=== PATIENT | male | born 1960 | race Caucasian/White ===

== ENCOUNTER 2022-12-10 16:14 | Emergency (ER) | payer OTHER ==
[~2022-12-10] VITALS: Ht 172.7 cm; Wt 86.2 kg
--- NOTE | 2022-12-10 16:20 | NUR ---
RECEIVED PT 62 YRS MALE C[facility]ALUATION OF GENRALIZED WEAKNESS AND SWEATING awake and alert fallow command
--- NOTE | 2022-12-10 17:10 | NUR ---
Jemma markrocky in [facility] - 12/10/22 at 1827 by NANCY AT BED SIDE
--- NOTE | 2022-12-10 17:14 | NUR ---
ACCUCKECK DONE 160MG/DL NOTEFED
--- NOTE | 2022-12-10 17:21 | NUR ---
C XRAY DONE AT BED SIDE
--- NOTE | 2022-12-10 17:22 | NUR ---
BLOOD DROW BY LAB TACH
--- NOTE | 2022-12-10 17:30 | NUR ---
AT BED SIDE CONDITION UP DATE
[2022-12-10 17:32] LABS: BASOPHILS # (AUTO) 0.1 K/uL (0.0-0.2); BASOPHILS % (AUTO) 1.2 % (0.0-2.0); EOSINOPHILS % (AUTO) 6.8 % (0.0-6.0); HEMATOCRIT 38 % (39-51); HEMOGLOBIN 12.7 g/dL (13.5-17.5); LYMPHOCYTES % (AUTO) 31.8 % (20.0-44.0); MEAN CORPUSCULAR HGB CONC 33 g/dl (31.0-36.0); MEAN CORPUSCULAR VOLUME 99 fL (80-96); MONOCYTES # (AUTO) 0.5 K/uL (0.1-1.30); MONOCYTES % (AUTO) 7.3 % (2.0-12.0); NEUTROPHILS # (AUTO) 3.3 K/uL (1.8-8.9); NEUTROPHILS % (AUTO) 52.9 % (43.0-81.0); PLATELET COUNT (AUTO) 193 K/uL (150-450); RED BLOOD CELL COUNT(AUTO) 3.86 MIL/uL (4.5-6.0); WHITE BLOOD COUNT (AUTO) 6.2 K/uL (4.3-11.0)
[2022-12-10 18:13] LABS: CALCIUM, SERUM 8.1 mg/dL (8.5-10.1); CARBON DIOXIDE 26 mmol/L (21-32); CHLORIDE 107 mmol/L (98-107); CREATININE 1.1 mg/dL (0.6-1.3); GLUCOSE 156 mg/dL (74-106); POTASSIUM 3.6 mmol/L (3.5-5.1); SODIUM SERUM 141 mmol/L (136-145); UREA NITROGEN, BLOOD 19 mg/dL (7-18)
--- NOTE | 2022-12-10 18:30 | NUR ---
BLOOD DROW BY LAB TO REPEAT TROPONIN
--- NOTE | 2022-12-10 19:40 | NUR ---
Jemma wetzel in [facility] - 12/10/22 at 1942 by NANCY ERROL LIM RN
--- NOTE | 2022-12-10 19:42 | NUR ---
HAND OFF ANA HERNANDEZ
--- NOTE | 2022-12-10 20:06 | NUR ---
RECEIVED PT IN ER BED 3. PT IS RESTING IN BED W/ EYES CLOSED, RR EVEN AND NON LABORED. CONNECTED TO POX AND HEART MONITOR. VSS. AT BEDSIDE. WILL CONTINUE TO MONITOR
--- NOTE | 2022-12-10 21:46 | NUR ---
PT AMBULATED TO BATHROOM, STEADY GAIT NOTED
--- NOTE | 2022-12-10 22:45 | NUR ---
Patient discharged to home in stable condition. Written and verbal after care instructions given. Patient verbalizes understanding of instruction.
[2022-12-10 23:11] VITALS: BP 118/71
== END 2022-12-10 23:12 | disposition home or self-care (01) ==
LOC: ER 17:01
DX: E86.0 Dehydration (principal); R53.1 Weakness; F10.90 Alcohol use, unspecified, uncomplicated; Y90.9 Presence of alcohol in blood, level not specified
CPT/HCPCS: 36415; 71045-TC; 80048-TC; 82962-TC; 83735-TC; 84484-TC; 85025-TC